=== PATIENT | male | born 1945 | race Caucasian/White ===

== ENCOUNTER 2018-04-25 10:57 | Emergency (ER) | payer MEDICARE, MEDICAID ==
[~2018-04-25] VITALS: Ht 162.6 cm; Wt 90.7 kg
[2018-04-25 11:55] LABS: CHLORIDE 102 mEq/L (98-107)
[2018-04-25 12:00] LABS: ETHANOL BLOOD < 10 mg/dL
[2018-04-25 12:02] LABS: LDL CHOLESTEROL 146 mg/dL (5-100)
[2018-04-25 12:03] LABS: BASOPHILS % 0.5 % (0.0-2.0); EOSINOPHILS % 2.5 % (0.0-5.0); HEMATOCRIT. 48.6 % (42.0-52.0); LYMPHOCYTES % 33.8 % (20.0-50.0); MEAN CORPUSCULAR HEMOGLOBIN 33.5 pg (28.0-32.0); MEAN CORPUSCULAR VOLUME 95.9 fL (80.0-94.0); MONOCYTES % 6.8 % (2.0-8.0); NEUTROPHILS % 56.4 % (40.0-76.0); RED BLOOD CELL COUNT 5.06 mill/uL (4.7-6.1); RED CELL DISTRIBUTION WIDTH 12.9 % (11.6-14.6)
[2018-04-25 12:09] LABS: PROTHROMBIN TIME 10.3 sec (9.1-11.1)
[2018-04-25 12:28] LABS: MEAN PLATELET VOLUME 10.1 fl (7.4-10.4); PLATELET 167 x1000/uL (130-400)
[2018-04-25 14:31] VITALS: BP 142/79
== END 2018-04-25 14:35 | disposition home or self-care (01) ==
LOC: ER 10:57 → CANBEDREQ 13:43 → ER 14:35
DX: G51.0 Bell's palsy (principal); E11.65 Type 2 diabetes mellitus with hyperglycemia; I10 Essential (primary) hypertension; R74.0 Nonspecific elevation of levels of transaminase and lactic acid dehydrogenase [LDH]; E78.5 Hyperlipidemia, unspecified; Z79.899 Other long term (current) drug therapy
CPT/HCPCS: 36415; 70450; 71045; 80053; 82962; 83721; 84484; 85025; 85610; 93005; 99284; G0482

== ENCOUNTER 2020-09-25 15:58 | Emergency (ER) | payer MEDICARE, MEDICAID ==
[~2020-09-25] VITALS: Ht 177.8 cm; Wt 100.0 kg
[2020-09-25] MEDS ORDERED: ACET-2708 MT (16:32)
[2020-09-25] MEDS ORDERED: LORA10CA MT (16:32)
[2020-09-25 17:04] VITALS: BP 163/86
== END 2020-09-25 17:05 | disposition home or self-care (01) ==
LOC: ER 16:16
DX: R09.81 Nasal congestion (principal); M26.601 Right temporomandibular joint disorder, unspecified; E11.9 Type 2 diabetes mellitus without complications; E78.00 Pure hypercholesterolemia, unspecified; Z79.899 Other long term (current) drug therapy
CPT/HCPCS: 99282

== ENCOUNTER 2020-10-06 10:21 | Emergency (ER) | payer MEDICARE, MEDICAID ==
[~2020-10-06] VITALS: Ht 172.7 cm; Wt 84.0 kg
[~2020-10-06 10:21] MED LIST: ACET-2708 MT; LORA10CA MT
[2020-10-06] MEDS ORDERED: HYDROCODONE/ACETAMINOPHEN 5/325MG TABLET PO ONE (11:00)
[2020-10-06] MEDS ORDERED: CETI10CA2 MT (13:22)
[2020-10-06] MEDS ORDERED: AMOX-424 MT (13:22)
[2020-10-06 13:37] VITALS: BP 181/78
== END 2020-10-06 13:37 | disposition home or self-care (01) ==
LOC: ER 10:21
DX: R51.9 Headache, unspecified (principal); R68.84 Jaw pain; J02.9 Acute pharyngitis, unspecified; R09.81 Nasal congestion; I10 Essential (primary) hypertension; E11.9 Type 2 diabetes mellitus without complications; E78.5 Hyperlipidemia, unspecified; G31.9 Degenerative disease of nervous system, unspecified
CPT/HCPCS: 70486; 99285

== ENCOUNTER 2020-10-15 10:28 | Emergency (ER) | payer MEDICARE, MEDICAID ==
[~2020-10-15] VITALS: Ht 165.1 cm; Wt 80.0 kg
[~2020-10-15 10:28] MED LIST changes: +AMOX-424 MT; +CETI10CA2 MT
[2020-10-15] MEDS ORDERED: MELA2.5T MT (11:19)
[2020-10-15] MEDS ORDERED: ACET-2708 MT (11:19)
[2020-10-15] MEDS ORDERED: CETI10TA6 MT (11:19)
[2020-10-15 11:27] VITALS: BP 148/70
== END 2020-10-15 11:27 | disposition home or self-care (01) ==
LOC: ER 10:28
DX: G47.00 Insomnia, unspecified (principal); I10 Essential (primary) hypertension; Z76.0 Encounter for issue of repeat prescription; Z79.899 Other long term (current) drug therapy
CPT/HCPCS: 99282

== ENCOUNTER 2020-10-24 09:19 | Emergency (ER) | payer MEDICARE, MEDICAID ==
[~2020-10-24] VITALS: Ht 172.7 cm; Wt 150.0 kg
[~2020-10-24 09:19] MED LIST changes: +CETI10TA6 MT; +MELA2.5T MT
[2020-10-24 11:46] VITALS: BP 185/69
== END 2020-10-24 11:49 | disposition home or self-care (01) ==
LOC: ER 09:19
DX: R05 Cough (principal); J02.9 Acute pharyngitis, unspecified; I10 Essential (primary) hypertension; Z79.899 Other long term (current) drug therapy
CPT/HCPCS: 71045; 99283

== ENCOUNTER 2024-03-17 11:50 | Emergency (ER) | payer MEDICAID, MEDICARE, OTHER ==
[~2024-03-17] VITALS: Ht 167.6 cm; Wt 73.0 kg
[~2024-03-17 11:50] MED LIST changes: -MELA2.5T MT; +MELA2.5T16 MT
[2024-03-17 11:53] VITALS: BP 113/54; PULSE 78; RESP 16; TEMP 97; O2SAT 98
[2024-03-17] MEDS ORDERED: ACET-2708 MT (13:51)
== END 2024-03-17 17:08 | disposition left against medical advice (07) ==
LOC: ER 12:02
DX: S09.90XA Unspecified injury of head, initial encounter (principal); M25.512 Pain in left shoulder; M25.561 Pain in right knee; E11.9 Type 2 diabetes mellitus without complications; E78.00 Pure hypercholesterolemia, unspecified; I10 Essential (primary) hypertension; W18.30XA Fall on same level, unspecified, initial encounter; Y93.89 Activity, other specified; Y92.89 Other specified places as the place of occurrence of the external cause; Y99.8 Other external cause status
CPT/HCPCS: 73030; 73110; 73562; 99284